=== PATIENT | female | born 1960 | race African-American/Black ===

== ENCOUNTER 2020-02-10 09:40 | Day surgery (SDC) | payer BC, OTHER ==
[2020-02-08 14:42] VITALS: BMI 42.0
[2020-02-10] MEDS ORDERED: MIDAZOLAM HCL 2 MG/2 ML SINGLE DOSE VIAL ONE ×2 (12:32→13:46)
[2020-02-10] MEDS ORDERED: ROPIVACAINE HCL 0.5% 30ML VIAL ONE (12:32)
[2020-02-10] MEDS ORDERED: PROPOFOL 20 ML ONE ×3 (13:47→15:05)
[2020-02-10] MEDS ORDERED: KETOROLAC TROMETHAMINE 30 MG/1 ML VIAL ONE (15:11)
[2020-02-10] MEDS ORDERED: ROCURONIUM BROMIDE 50 MG/5 ML SYRINGE ONE (15:42)
[2020-02-10] MEDS ORDERED: oxyCODONE HCL 5 MG TABLET PO PRN (16:04)
[2020-02-10] MEDS ORDERED: ONDANSETRON 4 MG/2 ML VIAL IVPUSH PRN (16:04)
[2020-02-10] MEDS ORDERED: ACETAMINOPHEN 1000 MG/100 ML VIAL (NON FORMULARY) IVPB ONE (16:04)
[2020-02-10] MEDS ORDERED: ACETAMINOPHEN INJECTION 100 ML IVPB ONE (16:08)
[2020-02-10] MEDS ORDERED: PATIENT'S OWN MEDICATION (NON-FORMULARY) (Insulin Degludec [Tresiba Flextouch U-200] 200 U SQ PRN (16:12)
[2020-02-10] MEDS ORDERED: LACTATED RINGERS SOLUTION 1,000 ML IV SCH (16:15)
[2020-02-10] MEDS ORDERED: PATIENT'S OWN MEDICATION (NON-FORMULARY) (Dulaglutide [Trulicity] 1.5 MG/0.5 ML Pen.Injctr SQ SCH (16:15)
[2020-02-10 17:57] VITALS: BP 138/80; PULSE 74; TEMP 98
[2020-02-10] MEDS ORDERED: ATORVASTATIN CA 40 MG TABLET (FP) PO SCH (22:00)
[2020-02-10] MEDS ORDERED: GABAPENTIN 300 MG CAPSULE PO SCH (22:00)
[2020-02-11] MEDS ORDERED: metFORMIN HCL 500 MG TABLET (FP) PO SCH (07:00)
[2020-02-11] MEDS ORDERED: PATIENT'S OWN MEDICATION (NON-FORMULARY) (Olmesartan/Amlodipin/Hcthiazid [Tribenzor 40-10- PO SCH (10:00)
[2020-02-11] MEDS ORDERED: HYDROCHLOROTHIAZIDE 12.5 MG CAPSULE (FP) PO SCH (10:00)
[2020-02-11] MEDS ORDERED: LOSARTAN POTASSIUM 50 MG TABLET PO SCH (10:00)
[2020-02-11] MEDS ORDERED: amLODIPine BESYLATE 10 MG TABLET (FP) PO SCH (10:00)
== END 2020-02-10 17:57 | disposition home or self-care (01) ==
LOC: FASU 09:40
PROVIDERS: ATTEND Orthopaedic Surgery Adult Reconstructive Orthopaedic Surgery
PROC: 0MN10ZZ Release Right Shoulder Bursa and Ligament, Open Approach (ICD-10-PCS; 2020-02-10)
PROC: 0LQ10ZZ Repair Right Shoulder Tendon, Open Approach (ICD-10-PCS; 2020-02-10)
PROC: 0PB90ZZ Excision of Right Clavicle, Open Approach (ICD-10-PCS; principal; 2020-02-10 14:31)
DX: M75.41 Impingement syndrome of right shoulder (principal); M75.121 Complete rotator cuff tear or rupture of right shoulder, not specified as traumatic
CPT/HCPCS: 82962; 94760; J0131

== ENCOUNTER 2020-08-12 04:57 | Day surgery (SDC) | payer BC, OTHER ==
[2020-08-05 19:11] VITALS: BMI 43.4
[2020-08-12] MEDS ORDERED: LIDOCAINE HCL 1%, 10 MG/ML (20ML VIAL) ONE (10:26)
[2020-08-12] MEDS ORDERED: BUPIVACAINE HCL/PF 0.5% (5MG/ML) 10 ML VIAL ONE (10:27)
[2020-08-12] MEDS ORDERED: MIDAZOLAM HCL 2 MG/2 ML SINGLE DOSE VIAL ONE (10:37)
[2020-08-12] MEDS ORDERED: PROPOFOL 20 ML ONE ×2 (10:37)
[2020-08-12] MEDS ORDERED: ceFAZolin SODIUM 1 GM VIAL IVPB ONE (10:50)
[2020-08-12] MEDS ORDERED: ceFAZolin SODIUM 1 GM VIAL ONE (10:58)
[2020-08-12] MEDS ORDERED: LIDOCAINE HCL/PF 2% SDV 5ML VIAL ONE (11:03)
[2020-08-12] MEDS ORDERED: oxyCODONE HCL 5 MG TABLET PO PRN (11:54)
[2020-08-12] MEDS ORDERED: ONDANSETRON 4 MG/2 ML VIAL IVPUSH PRN (11:54)
[2020-08-12] MEDS ORDERED: LACTATED RINGERS SOLUTION 1,000 ML IV SCH (12:00)
[2020-08-12] MEDS ORDERED: oxyCODONE HCL 5 MG TABLET ONE ×2 (12:23→12:51)
[2020-08-12] MEDS: oxyCODONE HCL 5 MG TABLET PO PRN ×2 (12:25→12:56)
[2020-08-12 14:49] VITALS: BP 126/80; PULSE 82; TEMP 98.2
== END 2020-08-12 13:30 | disposition home or self-care (01) ==
LOC: JASU-SURG 04:57
PROVIDERS: ATTEND Orthopaedic Surgery Adult Reconstructive Orthopaedic Surgery
PROC: 0LN80ZZ Release Left Hand Tendon, Open Approach (ICD-10-PCS; principal; 2020-08-12 11:00)
DX: M65.342 Trigger finger, left ring finger (principal); I10 Essential (primary) hypertension; E11.9 Type 2 diabetes mellitus without complications
CPT/HCPCS: 82962